=== PATIENT | male | born 1955 | race Caucasian/White ===

== ENCOUNTER 2020-12-16 21:22 | Inpatient (IN) | payer BC, OTHER ==
[~2020-12-16] VITALS: Ht 175.3 cm; Wt 82.6 kg
[2020-12-16] MEDS ORDERED: ATOR40TA PO (23:07)
[2020-12-16] MEDS ORDERED: LOSA1TAB36 PO (23:07)
[2020-12-16] MEDS ORDERED: POLY17PO4 PO (23:09)
[2020-12-16] MEDS ORDERED: FLUO20CA42 PO (23:10)
[2020-12-16] MEDS ORDERED: MIRT-90 PO (23:11)
[2020-12-16] MEDS ORDERED: DIVA500T2 PO (23:12)
[2020-12-16 23:45] VITALS: BP 132/70
[2020-12-17] MEDS ORDERED: MAGNESIUM HYDROXIDE 30 ML UDC PO PRN
[2020-12-17] MEDS ORDERED: ACETAMINOPHEN 325 MG TABLET PO PRN
[2020-12-17] MEDS ORDERED: MAG HYDROX/AL HYDROX/SIMETH 30 ML UDC PO PRN
[2020-12-17] MEDS ORDERED: TEMAZEPAM 7.5 MG CAPSULE PO PRN
[2020-12-17] MEDS ORDERED: BLOOD SUGAR DIAGNOSTIC 1 EACH STRIP IN ONE (00:30)
--- NOTE | 2020-12-17 00:40 | NUR ---
ADMISSION NOTES: ADMITTED THIS 65Y/O MALE PATIENT ADMIT FROM [facility] , ADMITTED TO GPS ON 5150 HOLD, PER HOLD GRAVELY DISABLE AND REFUSING MEDS , REFUSING TO EAT,UPON FACE TO FACE ASSESSMENT PATIENT IS A&O X , 3 DEPRESSED ,DISHELVED ,EASILY GETS AGITATED, DISORGNIZED, VERY POOR HYGINE , MALODORS , REFUSED TO TAKE SHOWER DENIES SI /HI AT THIS TIME, PT. IS POOR HISTORIAN, POOR INSIGHT ,POOR JUDGEMENT , PT. REFUSED TO SIGNS ADMISSION CONSENT PAPERS , DUE TO MENTAL STATUS , BOTH MD AWARE AND NOTIFIED OF THE ADMISSION, BELONGINGS CONTRABAND WERE DONE , NURSING ASSESSMENT DONE ,PT. RIGHTS DISCUSS BY EXIT BOOTH AGENT , PROVIDE THE PT. WITH HANDBOOK, AND MEDICATIONS GUIDE, ENVIRONMENTAL SAFETY CHECK DONE, ENCOURAGED PT. VERBALIZED ANY FEELING CONCERN TO STAFF, ORIENT TO UNIT POLICY, NO ACUTE DISTRESS NOTED,VITAL SIGNS WNL ,DENIES ANY PAIN AT THIS TIME,WILL CONTINUE TO MONITOR FOR Q15 SAFETY AND BEHAVIOR.
--- NOTE | 2020-12-17 00:48 | NUR ---
RN NOTES : REFUSED FULL BODY SKIN ASSESSMENT PT.ALLOWED ONLY VISIBAL AREA SKIN ASSESSMENT AND ALLOWED TO TAKE PHOTOGRAPHS OF THE BOTH LOWER EXTRIMITIS, BUT PT. REFUSED FULL BODY SKIN ASSESSMENT EXAM AND PHOTOGRAPHS, ENCOURAGED X 3 RISKS BENEFITS EXPLANIED PT. STRONGLY REFUSED. PT.NOTED WITH VERY POOR HYGINE ENCOURAGED PT. TO TAKE SHOWER BUT PT. STRONGLY REFUSED , WILL CONTINUITY WITH CARE.
--- NOTE | 2020-12-17 07:05 | NUR ---
RN NOTES : REFUSED AM LABS PT. REFUSED AM LABS . , ENCOURAGED X 3 RISKS BENEFITS EXPLANIED PT. STRONGLY REFUSED, AND PER PT. STATES MAYBE LATER IN DAY SHIFT. ENDORSE TO AM SHIFT , WILL CONTINUITY WITH CARE.
[2020-12-17 08:00] VITALS: BP 121/65
[2020-12-17] MEDS: LOSARTAN/HCTZ 50-12.5MG/ 1 EA TABLET PO SCH (08:54)
[2020-12-17] MEDS: POLYETHYLENE GLYCOL 3350 17 GM POWD.PACK PO SCH (08:55)
[2020-12-17 16:00] VITALS: BP 121/72
[2020-12-17] MEDS: ATORVASTATIN 40 MG TABLET PO SCH (17:04)
[2020-12-17 20:54] VITALS: BP 129/80
--- NOTE | 2020-12-17 22:42 | NUR ---
Patient in bed.Refused to take photos for weekly skin assessment.Advised of risk and benefits.
[2020-12-18 08:00] VITALS: BP 158/93
[2020-12-18] MEDS: POLYETHYLENE GLYCOL 3350 17 GM POWD.PACK PO SCH (08:43)
[2020-12-18] MEDS: LOSARTAN/HCTZ 50-12.5MG/ 1 EA TABLET PO SCH (08:44)
[2020-12-18] MEDS: FLUOXETINE HCL 20 MG CAPSULE PO SCH (08:44)
--- NOTE | 2020-12-18 09:00 | NUR ---
RN NOTE- PT IN BED , AWAKE INTERACTIVE THOUGH MINIMALLY, MED COMPLIANT , AFFECT IS FLAT, PT CONFUSED TO DATE AND TIME, POOR EYE CONTACT WITHDRAWN PASSIVE DENIES ALL
[2020-12-18 16:00] VITALS: BP 148/83
[2020-12-18 16:22] LABS: BASOPHILS % (AUTO) 0.6 % (0.0-2.0); EOSINOPHILS % (AUTO) 3.6 % (0.0-6.0); HEMATOCRIT 42 % (39-51); LYMPHOCYTES # (AUTO) 1.9 K/uL (0.8-4.8); LYMPHOCYTES % (AUTO) 29.6 % (20.0-44.0); MEAN CORPUSCULAR HGB CONC 33 g/dl (31.0-36.0); MEAN CORPUSCULAR VOLUME 88 fL (80-96); MONOCYTES # (AUTO) 0.7 K/uL (0.1-1.30); MONOCYTES % (AUTO) 11.5 % (2.0-12.0); NEUTROPHILS # (AUTO) 3.4 K/uL (1.8-8.9); NEUTROPHILS % (AUTO) 54.7 % (43.0-81.0); PLATELET COUNT (AUTO) 244 K/uL (150-450); WHITE BLOOD COUNT (AUTO) 6.3 K/uL (4.3-11.0)
[2020-12-18 16:33] LABS: CREATININE 0.5 mg/dL (0.6-1.3)
[2020-12-18] MEDS: ATORVASTATIN 40 MG TABLET PO SCH (18:35)
[2020-12-18 20:10] VITALS: BP 134/80
[2020-12-19 08:00] VITALS: BP 157/90
[2020-12-19] MEDS: POLYETHYLENE GLYCOL 3350 17 GM POWD.PACK PO SCH (08:12)
[2020-12-19] MEDS: FLUOXETINE HCL 20 MG CAPSULE PO SCH (08:12)
[2020-12-19] MEDS: LOSARTAN/HCTZ 50-12.5MG/ 1 EA TABLET PO SCH (08:13)
--- NOTE | 2020-12-19 09:00 | NUR ---
RN NOTE- AWAKE INTERACTIVE THOUGH MINIMALLY, MED COMPLIANT , AFFECT IS FLAT, PT CONFUSED TO DATE AND TIME, POOR EYE CONTACT WITHDRAWN PASSIVE DENIES ALL
--- NOTE | 2020-12-19 15:15 | NUR ---
Point of contact: SW called pts sister Skylar Faulkner ([phone]) to discuss pts care and discharge. Pts sister did not answer. SW left a voicemail and will follow up with pts sister at a later time.
--- NOTE | 2020-12-19 15:16 | NUR ---
Point of contact: FARIDA called pts brother Bharat Loya ([phone]) regarding pts care and discharge plan. Pts brother did not answer, SW left a voicemail and will follow up with pts brother at a later time.
[2020-12-19 16:00] VITALS: BP 139/86
[2020-12-19] MEDS: ATORVASTATIN 40 MG TABLET PO SCH (17:25)
[2020-12-19 20:22] VITALS: BP 119/71
[2020-12-20 08:00] VITALS: BP 157/88
[2020-12-20] MEDS: POLYETHYLENE GLYCOL 3350 17 GM POWD.PACK PO SCH (08:18)
[2020-12-20] MEDS: LOSARTAN/HCTZ 50-12.5MG/ 1 EA TABLET PO SCH (08:19)
[2020-12-20] MEDS: Fluoxetine 10 mg capsule PO SCH (09:06)
--- NOTE | 2020-12-20 15:18 | NUR ---
Initial discharge plan: Pt reports that he is currently homeless. Per pt, pt would like to return to the residential treatment center that he was living at called [facility] or possibly a SNF. SW will work with pt and the MD regarding appropriate discharge planning. SW will form a safe and proper discharge.
[2020-12-20 16:08] VITALS: BP 140/86
[2020-12-20] MEDS: ATORVASTATIN 40 MG TABLET PO SCH (17:17)
[2020-12-20 20:01] VITALS: BP 132/78
[2020-12-21 08:00] VITALS: BP 154/89
[2020-12-21] MEDS: POLYETHYLENE GLYCOL 3350 17 GM POWD.PACK PO SCH (08:15)
[2020-12-21] MEDS: LOSARTAN/HCTZ 50-12.5MG/ 1 EA TABLET PO SCH (08:15)
[2020-12-21] MEDS: Fluoxetine 10 mg capsule PO SCH (08:16)
--- NOTE | 2020-12-21 09:49 | NUR ---
Family contact: FARIDA contacted pts sister Skylar ([phone]) to discuss pts discharge plan. Pts sister reports that she, her brother Silver ([phone]), sister Annie ([phone]) are pts financial DPOAs. Pts sister reports that pts brother Bharat ([phone]) is pts healthcare DPOA. Pts sister reports that pt has a long history of psychiatric hospitalizations. FARIDA informed sister that she will update her on pts tx plan. FARIDA asks sister to fax DPOA verification to [phone].
--- NOTE | 2020-12-21 11:04 | NUR ---
Family contact: FARIDA was in contact with pts brother and DPOA Silver ([phone]) about pts discharge plan. Pts brother would like pt to be discharged to a SNF. FARIDA informed pts brother that placing pt in a SNF may be challenging due to pts insurance. Pts brother will send FARIDA his DPOA verification via to fax ([phone]) or email it to ([email or web address]).
[2020-12-21 16:00] VITALS: BP 154/85
[2020-12-21] MEDS: ATORVASTATIN 40 MG TABLET PO SCH (17:17)
[2020-12-21 20:10] VITALS: BP 117/72
[2020-12-22 08:00] VITALS: BP 146/82
--- NOTE | 2020-12-22 08:30 | NUR ---
WOUND CARE CONSULT: PT SEEN FOR FEET AND NOTED TO HAVE INTACT SKIN WITH SOME PEELING SKIN ON TOES, PRESENT ON ADMISSION. WILL SEE PRN.
[2020-12-22] MEDS: POLYETHYLENE GLYCOL 3350 17 GM POWD.PACK PO SCH (08:45)
[2020-12-22] MEDS: Fluoxetine 10 mg capsule PO SCH (08:46)
[2020-12-22] MEDS: LOSARTAN/HCTZ 50-12.5MG/ 1 EA TABLET PO SCH (08:46)
--- NOTE | 2020-12-22 09:00 | NUR ---
RN NOTE- PT VISIBLE IN HALLS AND ON UNIT, MED COMPLIANT, NEEDS ATTENDED, FLAT AFFECT DENIES SI HI AH VH, SHOWERED YESTERDAY ENCOURAGING ADLS
--- NOTE | 2020-12-22 10:43 | NUR ---
Probable Cause Hearing: Pts [id number] hold was upheld for grave disability.
[2020-12-22 15:51] VITALS: BP 125/85
[2020-12-22] MEDS: ATORVASTATIN 40 MG TABLET PO SCH (17:24)
[2020-12-22] MEDS: LORAZEPAM 1 MG TABLET PO PRN (19:43)
--- NOTE | 2020-12-22 19:44 | NUR ---
RN NOTES: ANXIETY PT.C/O ,ANXIOUS, PARANOID , PACING IN HALLWAY, ATIVAN 1 MG PO PRN, GIVEN WILL CONTINUE TO MONITOR.
[2020-12-22 20:20] VITALS: BP 126/86
[2020-12-23 08:00] VITALS: BP_SYST 152; BP_SYST 164; BP_DIAS 95; BP_DIAS 96
[2020-12-23] MEDS: LOSARTAN/HCTZ 50-12.5MG/ 1 EA TABLET PO SCH (08:04)
[2020-12-23] MEDS: POLYETHYLENE GLYCOL 3350 17 GM POWD.PACK PO SCH (08:04)
[2020-12-23] MEDS: Fluoxetine 10 mg capsule PO SCH (08:04)
[2020-12-23] MEDS: LORAZEPAM 1 MG TABLET PO PRN (08:06)
--- NOTE | 2020-12-23 08:06 | NUR ---
NOTES: ANXIETY PT.C/O ,ANXIOUS, PARANOID , ATIVAN 1 MG PO PRN, GIVEN WILL CONTINUE TO MONITOR.
[2020-12-23 16:13] VITALS: BP 155/93
[2020-12-23] MEDS: ATORVASTATIN 40 MG TABLET PO SCH (17:43)
[2020-12-23 20:00] VITALS: BP 133/76
[2020-12-23 20:13] VITALS: BP 133/76
[2020-12-24 08:00] VITALS: BP 155/87
[2020-12-24] MEDS: POLYETHYLENE GLYCOL 3350 17 GM POWD.PACK PO SCH (09:08)
[2020-12-24] MEDS: LOSARTAN/HCTZ 50-12.5MG/ 1 EA TABLET PO SCH (09:08)
[2020-12-24] MEDS: Fluoxetine 10 mg capsule PO SCH (09:08)
[2020-12-24 16:00] VITALS: BP 158/93
[2020-12-24] MEDS: ATORVASTATIN 40 MG TABLET PO SCH (18:31)
[2020-12-24 20:00] VITALS: BP 146/98
[2020-12-25 08:00] VITALS: BP 153/82
[2020-12-25] MEDS: Fluoxetine 10 mg capsule PO SCH (08:33)
[2020-12-25] MEDS: POLYETHYLENE GLYCOL 3350 17 GM POWD.PACK PO SCH (08:33)
[2020-12-25] MEDS: LOSARTAN/HCTZ 50-12.5MG/ 1 EA TABLET PO SCH (08:34)
--- NOTE | 2020-12-25 09:00 | NUR ---
RN NOTE- DEPRESSED, WITHDRAWN, MED COMPLIANT. PO INTAKE FAIR, DENIES SI HI VH
--- NOTE | 2020-12-25 14:41 | NUR ---
Contact with [facility]: FARIDA called [facility] ([phone]) to inquire if pt can return to the facility upon discharge. FARIDA was unable to make contact and left a voicemail. FARIDA will follow up with Taz at a later time.
--- NOTE | 2020-12-25 14:44 | NUR ---
Referral to [facility]: FARIDA faxed referral to [facility] fax # [phone].
[2020-12-25 16:00] VITALS: BP 138/86
[2020-12-25] MEDS: ATORVASTATIN 40 MG TABLET PO SCH (17:47)
[2020-12-25 20:00] VITALS: BP 154/91
--- NOTE | 2020-12-26 00:09 | NUR ---
GPS RN NOTE PATIENT SEEN BY DR. HECK. D/C'ED ORDER: FLUOXETINE 30MG PO DAILY. NEW ORDER: FLUOXETINE 40MG PO DAILY.
--- NOTE | 2020-12-26 06:13 | NUR ---
GPS RN CLOSING NOTE A/OX3; CONFUSION; ABLE TO MAKE NEEDS KNOWN. PT SLEEPING IN BED.TOLERATING ROOM AIR WELL WITH NO SOB. NO S/SX OF PAIN AT THIS TIME. NO ACUTE DISTRESS NOTED. COMPLIANT WITH CARE AT THIS TIME. DENIES SI/HI/DEPRESSION. SAFETY MEASURES IN PLACE: BED IN LOWEST LOCKED POSITION, SIDE RAILS UPX2. WILL ENDORSE PLAN OF CARE TO ONCOMING MORNING RN.
[2020-12-26 08:00] VITALS: BP 139/84
[2020-12-26] MEDS: FLUOXETINE HCL 20 MG CAPSULE PO SCH (09:00)
[2020-12-26] MEDS: LOSARTAN/HCTZ 50-12.5MG/ 1 EA TABLET PO SCH (09:00)
[2020-12-26] MEDS: POLYETHYLENE GLYCOL 3350 17 GM POWD.PACK PO SCH (09:00)
--- NOTE | 2020-12-26 14:59 | NUR ---
Contact with [facility]: FARIDA contacted Carly from admissions at [facility] ([phone]) to inquire about the status of pts referral. Admissions reported that they never received the referral. FARIDA faxed a new referral with Attn to Carly at fax # [phone]. FARIDA will follow up with admissions at a later time.
--- NOTE | 2020-12-26 16:00 | NUR ---
Contact with [facility]: SW was contacted by [facility] and reported that pt was not accepted to the facility.
[2020-12-26] MEDS: ATORVASTATIN 40 MG TABLET PO SCH (16:48)
[2020-12-26 20:00] VITALS: BP 125/74
[2020-12-27 08:00] VITALS: BP 155/93
[2020-12-27] MEDS: FLUOXETINE HCL 20 MG CAPSULE PO SCH (08:31)
[2020-12-27] MEDS: POLYETHYLENE GLYCOL 3350 17 GM POWD.PACK PO SCH (08:32)
[2020-12-27] MEDS: LOSARTAN/HCTZ 50-12.5MG/ 1 EA TABLET PO SCH (08:32)
--- NOTE | 2020-12-27 08:58 | NUR ---
Referral to [facility]: faxed referral to [facility] to fax #[phone].
--- NOTE | 2020-12-27 08:59 | NUR ---
Referral to [facility]: FARIDA faxed referral to [facility] [phone].
--- NOTE | 2020-12-27 09:09 | NUR ---
Family contacted: FARIDA contacted pts brother Bharat ([phone]) to discuss placement and pts discharge plan. SW left a voicemail and will follow up with pts brother at a later time.
--- NOTE | 2020-12-27 09:12 | NUR ---
Point of contact: SW called pts sister Skylar Faulkner ([phone]) to discuss pts placement and discharge plan. Pts sister did not answer. SW will follow up with pts sister at a later time.
--- NOTE | 2020-12-27 09:48 | NUR ---
[facility]: FARIDA faxed a referral to [facility] with attn to Tyler to the fax number: [phone].
[2020-12-27 16:00] VITALS: BP 126/60
[2020-12-27] MEDS: ATORVASTATIN 40 MG TABLET PO SCH (17:50)
--- NOTE | 2020-12-27 20:00 | NUR ---
PATIENT IN THE ROOM A/OX3. NO ACUTE DISTRESS NOTED. PATIENT PARANOID,DISHELVED, UNMOTIVATED TO SELF CARE, MED COMPLIANT. NO VERBALIZATION OF THOUGHTS AND FEELINGS OF SI/HI. SAFETY PRECAUTIONS IN PLACE. WILL CONTINUE TO MONITOR Q15MIN ROUNDS FOR SAFETY AND BEHAVIOR.
[2020-12-27 20:36] VITALS: BP 144/97
--- NOTE | 2020-12-27 22:10 | NUR ---
CARE ENDORSED TO FAA RN.
[2020-12-28 08:00] VITALS: BP 140/84
[2020-12-28] MEDS: FLUOXETINE HCL 20 MG CAPSULE PO SCH (08:04)
[2020-12-28] MEDS: LOSARTAN/HCTZ 50-12.5MG/ 1 EA TABLET PO SCH (08:04)
[2020-12-28] MEDS: POLYETHYLENE GLYCOL 3350 17 GM POWD.PACK PO SCH (08:04)
--- NOTE | 2020-12-28 09:05 | NUR ---
Family Contact: SW contacted pts sister Skylar Faulkner ([phone]) to discuss pts discharge plan. SW informed pts sister that finding placement for pt is challenging due to pts insurance. SW inquired if pts family is willing to pay for placement. Pts sister reports that the family will not pay for placement. SW will follow up with alternative placements for pt.
--- NOTE | 2020-12-28 09:10 | NUR ---
Contact with [facility]: FARIDA called [facility] and spoke with Levi ([phone]). FARIDA inquired if the facility would accept pt upon discharge. Taz reported that they would not be able to accept pt due to his lack of self care. FARIDA informed Taz that they legally they must notify pt 30 days prior to discharge. Taz reported that he will speak to his gas meter repair supervisor about the case. FARIDA will followup with Taz at a later time.
--- NOTE | 2020-12-28 10:36 | NUR ---
Contact with [facility]: FARIDA received [facility] and spoke with Levi ([phone]). Taz reported that pt was part of their outpatient program and was staying at one of of their apartments. Taz reports that since pt was staying in their outpatient program they are not legally required to send a 30 day notice to pt. FARIDA will follow up with meter repair shop supervisor regarding this matter.
--- NOTE | 2020-12-28 11:12 | NUR ---
Interaction with pt: SW and Unit Coordinator spoke with pt about income and discharge plan. SW informed pt that currently, pt does not have placement and will be homeless. SW informed him of alternative options such as a hotel. Pt reports that he has a credit card, can pay for a hotel and is open to going to a hotel upon discharge.
--- NOTE | 2020-12-28 11:14 | NUR ---
Family contact: FARIDA received a call from pts sister Annie ([phone]). FARIDA informed pts sister that pt cannot return to [facility]. Pts sister reports that pt has assets in the amount of $2,500-3,000. Pts sister reports that the family is refusing to pay for placement. FARIDA informed pts sister that his money is not enough to pay for assisted living and pt has agreed to go to a hotel upon discharge. FARIDA will follow up with pts family once there is a discharge date.
--- NOTE | 2020-12-28 13:16 | NUR ---
Contact with [facility]: FARIDA contacted [facility] ([phone] ex [phone]) and inquired what their fax number in order to send clinicals. [facility] reported to fax clinicals to fax # with attn to shelter case manager Kanika Rangel. FARIDA will follow up and fax clinicals.
--- NOTE | 2020-12-28 13:36 | NUR ---
UR Note: FARIDA faxed clinicals to fax #[phone] with attn to rn case management Kanika Rangel.
[2020-12-28 16:14] VITALS: BP 148/91
[2020-12-28] MEDS: ATORVASTATIN 40 MG TABLET PO SCH (17:00)
--- NOTE | 2020-12-28 19:30 | NUR ---
GPS RN NOTE, RECEIVED PATIENT AWAKE AND IN BED, NO S/S OR COMPLAINTS OF PAIN AT THIS TIME. PATIENT IS DISPLAYING NO S/S OF APPARENT DISTRESS AT THIS TIME. PATIENT BREATHING IS UNLABORED WITH EQUAL RISE AND FALL OF THE CHEST. PATIENT IS ALERT AND ORIENTED X 3 ON ROOM AIR WITH A SPO2 98%. PATIENT IS COMPLIANT WITH MEDICATIONS, ANXIOUS, MAKES NEEDS KNOWN, NEEDS REDIRECTION, AND IS COOPERATIVE. PATIENT DENIES SUICIDAL AND HOMICIDAL IDEATIONS AT THIS TIME. PATIENT ASSISTED WITH TURNING AND REPOSITIONING Q2HR AND PRN FOR COMFORT AND CIRCULATION. PATIENT HAS NO NEEDS AT THIS TIME. PATIENT EDUCATED ON THE USE OF THE CALL LIGHT. PATIENT BED SIDE RAILS UP X 2 FOR SAFETY. PATIENT BED IS LOCKED, LOW, WITH BED ALARM ON. WILL CONTINUE TO MONITOR THIS PATIENT Q15 MINUTES WITH THE HELP OF STAFF TO MAINTAIN SAFETY.
[2020-12-28 20:32] VITALS: BP 149/79
[2020-12-29 08:00] VITALS: BP 138/84
[2020-12-29] MEDS: LOSARTAN/HCTZ 50-12.5MG/ 1 EA TABLET PO SCH (08:28)
[2020-12-29] MEDS: FLUOXETINE HCL 20 MG CAPSULE PO SCH (08:28)
[2020-12-29] MEDS: POLYETHYLENE GLYCOL 3350 17 GM POWD.PACK PO SCH (08:28)
[2020-12-29 16:00] VITALS: BP 141/79
--- NOTE | 2020-12-29 16:03 | NUR ---
Point of contact: FARIDA was contacted by Yue ([phone]) pts catalytic case operator from [facility]. FARIDA informed catalytic case operator of pts current mental status. FARIDA faxed pts medication list to catalytic case operator at fax #[phone].
[2020-12-29] MEDS: ATORVASTATIN 40 MG TABLET PO SCH (17:23)
[2020-12-29 20:40] VITALS: BP 124/70
[2020-12-29 21:09] VITALS: BP 124/70
[2020-12-30 08:00] VITALS: BP 157/101
[2020-12-30] MEDS: LOSARTAN/HCTZ 50-12.5MG/ 1 EA TABLET PO SCH (08:24)
[2020-12-30] MEDS: FLUOXETINE HCL 20 MG CAPSULE PO SCH (08:24)
[2020-12-30] MEDS: POLYETHYLENE GLYCOL 3350 17 GM POWD.PACK PO SCH (08:24)
[2020-12-30 15:00] VITALS: BP 163/105
--- NOTE | 2020-12-30 15:00 | NUR ---
RN-CO: DR LORA MADE AWARE OF BP 163/105, SUGGESTED TO REPEAT BP USING MANUAL BP, NOTED.
--- NOTE | 2020-12-30 15:15 | NUR ---
RN-CO: PATIENT INSTRUCTED TO RELAX AND GO TO A QUIET ROOM , CLOSE HIS EYES BEC HIS BP IS HIGH. HE STATED HE IS ANXIOUS.
[2020-12-30] MEDS: ATORVASTATIN 40 MG TABLET PO SCH (17:23)
[2020-12-30] MEDS: LORAZEPAM 1 MG TABLET PO PRN (17:23)
--- NOTE | 2020-12-30 17:23 | NUR ---
RN-CO: ATIVAN PO GIVEN FOR ANXIETY.
[2020-12-30 17:59] VITALS: BP 145/83
--- NOTE | 2020-12-30 18:06 | NUR ---
RN-CO: BP WENT DOWN TO 145/83. PT DENIED PAIN AND DISCOMFORTS. HE SAID HE IS MORE RELAX BEC OF THE ATIVAN.
--- NOTE | 2020-12-30 19:30 | NUR ---
GPS RN NOTE, RECEIVED PATIENT AWAKE AND IN BED, NO S/S OR COMPLAINTS OF PAIN AT THIS TIME. PATIENT IS DISPLAYING NO S/S OF APPARENT DISTRESS AT THIS TIME. PATIENT BREATHING IS UNLABORED WITH EQUAL RISE AND FALL OF THE CHEST. PATIENT IS ALERT AND ORIENTED X 3 ON ROOM AIR WITH A SPO2 98%. PATIENT IS COMPLIANT WITH MEDICATIONS, ANXIOUS, MAKES NEEDS KNOWN, UNMOTIVATED, DISORGANIZED, FOCUSED ON TEMPERATURE OF THE ROOM, AND IS COOPERATIVE. PATIENT DENIES SUICIDAL AND HOMICIDAL IDEATIONS AT THIS TIME. PATIENT ASSISTED WITH TURNING AND REPOSITIONING Q2HR AND PRN FOR COMFORT AND CIRCULATION. PATIENT HAS NO NEEDS AT THIS TIME. PATIENT EDUCATED ON THE USE OF THE CALL LIGHT. PATIENT BED SIDE RAILS UP X 2 FOR SAFETY. PATIENT BED IS LOCKED, LOW, WITH BED ALARM ON. WILL CONTINUE TO MONITOR THIS PATIENT Q15 MINUTES WITH THE HELP OF STAFF TO MAINTAIN SAFETY.
[2020-12-30 20:40] VITALS: BP 144/82
[2020-12-30] MEDS: DOCUSATE SODIUM 100 MG CAPSULE PO SCH (21:03)
[2020-12-31 08:05] VITALS: BP 161/89
[2020-12-31] MEDS: FLUOXETINE HCL 20 MG CAPSULE PO SCH (09:18)
[2020-12-31] MEDS: DOCUSATE SODIUM 100 MG CAPSULE PO SCH ×2 (09:18→17:39)
[2020-12-31] MEDS: POLYETHYLENE GLYCOL 3350 17 GM POWD.PACK PO SCH (09:18)
[2020-12-31] MEDS: LOSARTAN/HCTZ 50-12.5MG/ 1 EA TABLET PO SCH (09:21)
[2020-12-31 16:04] VITALS: BP 154/90
[2020-12-31] MEDS: ATORVASTATIN 40 MG TABLET PO SCH (17:42)
[2020-12-31 20:00] VITALS: BP 145/92
--- NOTE | 2021-01-01 05:31 | NUR ---
GPS RN NOTES PATIENT AGREED TO SKIN ASSESSMENT. WHEN I TRIED TO TAKE OFF HIS SOCKS AND MOVE HIS FEET HE REFUSED PICTURE. NO OPEN WOUNDS NOTED.
[2021-01-01 08:00] VITALS: BP 132/80
[2021-01-01] MEDS: POLYETHYLENE GLYCOL 3350 17 GM POWD.PACK PO SCH ×2 (08:07→09:00)
[2021-01-01] MEDS: LOSARTAN/HCTZ 50-12.5MG/ 1 EA TABLET PO SCH (08:07)
[2021-01-01] MEDS: DOCUSATE SODIUM 100 MG CAPSULE PO SCH ×2 (08:07→17:17)
[2021-01-01] MEDS: FLUOXETINE HCL 20 MG CAPSULE PO SCH (08:08)
[2021-01-01 16:00] VITALS: BP 155/85
[2021-01-01] MEDS: ATORVASTATIN 40 MG TABLET PO SCH (17:17)
[2021-01-01 20:00] VITALS: BP 125/78
--- NOTE | 2021-01-01 21:00 | NUR ---
RN NOTE DR. HECK SAW PT AT BEDSIDE, PER PT IS OKAY TO DISCHARGE TOMORROW
--- NOTE | 2021-01-02 03:45 | NUR ---
Updated discharge: Pt has [employer] account and went to [address] located at [address], [place] [address] via [employer] due to delays with hospital's contracted taxi service. Inker approved of pt using [employer] as transportation.
--- NOTE | 2021-01-02 06:48 | NUR ---
RN CLOSING NOTE PATIENT AWAKE IN ROOM, NO S/S OF DISTRESS OR SOB NOTED, BREATHING EVEN AND UNLABORED. PT WITHDRAWN, ISOLATIVE IN ROOM. REQUESTED PHONE AT THE BEGINNING OF SHIFT TO CALL FAMILY. OFFERED PT SLEEPING MEDICATION, BUT REFUSED. PATIENT NEEDS MET THROUGHOUT SHIFT. PATIENT SLEPT 8 HOURS. SAFETY MEASURES KEPT IN PLACE: BED LOCKED IN LOWEST POSITION, SIDE RAILS UP X 2, Q15 MIN CHECKS FOR SAFETY BY STAFF. WILL ENDORSE TO DAY SHIFT NURSE FOR CONTINUITY OF CARE
[2021-01-02 08:00] VITALS: BP 135/72
[2021-01-02] MEDS: POLYETHYLENE GLYCOL 3350 17 GM POWD.PACK PO SCH (08:51)
[2021-01-02] MEDS: LOSARTAN/HCTZ 50-12.5MG/ 1 EA TABLET PO SCH (08:51)
[2021-01-02] MEDS: FLUOXETINE HCL 20 MG CAPSULE PO SCH (08:51)
[2021-01-02] MEDS: DOCUSATE SODIUM 100 MG CAPSULE PO SCH (08:51)
--- NOTE | 2021-01-02 11:17 | NUR ---
Family Contact: FARIDA contacted pts sister Skylar Faulkner ([phone]) to discuss pts discharge plan to [address] located at [address] [facility], [place] [address] Pt will be discharged at 3pm and pt will be transported via taxi. SW was unable to speak with pts sister and left a voicemail. FARIDA will attempt to contact pts sister at a later time.
--- NOTE | 2021-01-02 13:25 | NUR ---
Family contact: SW returned a call from pts brother Silver Loya ([phone]) to discuss pts discharge. Pts brother did not answer. SW left a voicemail and will attempt to call pts brother at a later time.
--- NOTE | 2021-01-02 15:04 | NUR ---
Family contact: SW returned a call from pts brother Silver Loya ([phone]) and discussed pts discharge to to [address] [facility] [address] [facility] [address] at 3 pm on 01/02/21. FARIDA informed pts brother that he was not accepted to various SNFs due to pts lack of assisted need. FARIDA informed pts brother that pt was not accepted to various assisted living facilities due to pt needing a higher level of care.
--- NOTE | 2021-01-02 15:05 | NUR ---
Discharge: Pt was discharged to [address] located at [address] [facility] [address] Pt will be discharged at 3pm and pt will be transported via taxi. Pts sister Skylar ([phone]), pts brother Silver ([phone]) and pts patient case coordinator Yue from [facility] ([phone]) were contacted about the discharge. Upon discharge, the pt appears to be in a euthymic mood and presented with a depressed affect. Pt denies both suicidal and homicidal ideation as well as auditory and visual hallucinations. Pt was provided with homeless resources such as shelters, food bo, showers, hot meals, health clinics, mental health clinics and substance abuse referrals. Pt was referred to [facility] ([phone]) located at [address] [facility] for psychiatric services. Pt was also referred [facility] [address] [facility]; ([phone]) for medical services. Pt signed the homeless waiver and the multidisciplinary exit care form was done, printed, signed, and given to the patient.
[2021-01-02 16:00] VITALS: BP 128/85
--- NOTE | 2021-01-02 17:10 | NUR ---
65 YEAR OLD MALE DISCHARGED TO SELF CARE IN STABLE CONDITION. COMPLIANT WITH MEDICATIONS, COOPERATIVE WITH TREATMENT PLANS. PATIENT DENIES SI/HI AND INSTRUCTED TO GO TO THE CLOSEST ER IF DEVELOPING SI/HI. BEHAVIOR IMPROVED, PSYCHIATRIC TREATMENT PLANS MET, MEDICAL TREATMENT PLANS DEFERRED FOR CONTINUAL MONITORING. EDUCATED PATIENT ABOUT AFTER CARE PLAN AND COPY PROVIDED. RETURNED PERSONAL BELONGINGS AND MEDICATIONS. MEDICATIONS RECONCILED WITH DR. HECK AND DR. LEACH. PATIENT SIGNED DISCHARGE PAPERWORK. PT REFUSED SKIN PICTURES AND ASSESSMENT. PT LEFT THE UNIT VIA UBER AT 1710 IN STABLE CONDITION
== END 2021-01-02 17:10 | disposition home or self-care (01) | DRG 885 ==
LOC: GPS 21:22
PROVIDERS: ADMIT Psychiatry & Neurology Psychiatry; ATTEND Family Medicine
DX: F33.9 Major depressive disorder, recurrent, unspecified (principal); E78.5 Hyperlipidemia, unspecified; E11.9 Type 2 diabetes mellitus without complications; I10 Essential (primary) hypertension; F41.9 Anxiety disorder, unspecified; Z83.3 Family history of diabetes mellitus; G47.33 Obstructive sleep apnea (adult) (pediatric); Z73.6 Limitation of activities due to disability; F39 Unspecified mood [affective] disorder
CPT/HCPCS: 36415; 80048-TC; 80061-TC; 82962-TC; 85025-TC; 87081-TC; 97110-TC; 97116-TC; 97530-TC